=== PATIENT | male | born 1985 | race Caucasian/White ===

== ENCOUNTER 2016-08-22 21:28 | Emergency (ER) | payer OTHER ==
[~2016-08-22] VITALS: Ht 185.4 cm; Wt 103.6 kg
[~2016-08-22 21:28] MED LIST: CIPROFLOXACIN OT; FIORICET,ESG1 TABLET PO; HYDROCODON-ACE1 EAC7 PO; MOTRIN600 MG PO; SUBOXONE 4 MG-1 EACH SL; TAMIFLU75 MG PO
[2016-08-22 22:37] LABS: HEMATOCRIT 42.7 % (38.0-50.0); MCHC 35.6 G/DL (30.0-36.0); MEAN PLAT.VOLUME 10.1 uM^3 (9.0-12.4); PLATELET COUNT 220 K/uL (156-360); RBC DIS.WIDTH-CV 13.9 % (11.8-14.6); RBC DIS.WIDTH-SD 43.9 % (39-53); RED BLOOD COUNT 4.91 M/uL (4.00-5.50); WHITE BLOOD COUNT 10.6 K/uL (4.1-10.2)
[2016-08-22 22:59] LABS: CHLORIDE 105 mEq/L (99-109); POTASSIUM 3.8 mEq/L (3.7-5.4); SODIUM 137 mEq/L (136-147)
[2016-08-22 23:02] LABS: ANION GAP 8 MEQ/L (2-14); GLUCOSE 112 mg/dL (70-99)
[2016-08-22 23:03] LABS: TOTAL BILIRUBIN 0.8 mg/dL (0.0-1.0)
[2016-08-22 23:05] LABS: ALKALINE PHOSPHATASE 61 IU/L (3-129); GFR ESTIMATE (CALCULATED) > 59 mL/min/
[2016-08-22 23:06] LABS: UREA NITROGEN (BUN) 14 mg/dL (9-23)
[2016-08-22 23:29] LABS: ADD MIUA? NO; BILIRUBIN NEGATIVE; BLOOD NEGATIVE; COLOR YELLOW ((YELLOW)); GLUCOSE (STRIP) NEGATIVE; KETONES NEGATIVE; LEUKOCYTES NEGATIVE; NITRITE NEGATIVE; PROTEIN (STRIP) NEGATIVE; SPECIFIC GRAVITY 1.021 (1.000-1.030); UCUL ADDED? NO; UROBILINOGEN 0.2 MG/DL (0.2-1.0)
[2016-08-22] MEDS ORDERED: TRAMADOL HCL50 MG PO (23:32)
[2016-08-23 03:42] VITALS: BP 130/58
[2016-08-23 04:01] LABS: ERTH.SED.RATE 8 MM/HR (0-15)
[2016-08-24] MEDS ORDERED: TAMSULOSIN HCL0.4 MG PO (13:05)
[2016-08-24] MEDS ORDERED: CEFTIN250 MG PO (13:06)
[2016-08-24] MEDS ORDERED: LIPITOR20 MG PO (13:19)
== END 2016-08-23 03:43 | disposition home or self-care (01) ==
LOC: EME 21:28
PROC: 0T9B70Z Drainage of Bladder with Drainage Device, Via Natural or Artificial Opening (ICD-10-PCS; principal; 2016-08-22)
DX: R33.9 Retention of urine, unspecified (principal); F17.200 Nicotine dependence, unspecified, uncomplicated
CPT/HCPCS: 70140; 80053; 81003; 85027; 85651; 99281; 99285

== ENCOUNTER 2016-08-23 19:56 | Observation (INO) | payer OTHER ==
[~2016-08-23] VITALS: Ht 185.4 cm; Wt 102.7 kg
[~2016-08-23 19:56] MED LIST changes: +TRAMADOL HCL50 MG PO
[2016-08-23 20:23] LABS: HEMATOCRIT 42.7 % (38.0-50.0); MCH 30.9 PG (29.0-34.0); MCHC 35.1 G/DL (30.0-36.0); MCV 87.9 FL (86-99); MEAN PLAT.VOLUME 10.1 uM^3 (9.0-12.4); PLATELET COUNT 214 K/uL (156-360); RBC DIS.WIDTH-CV 13.9 % (11.8-14.6); RBC DIS.WIDTH-SD 44.3 % (39-53); RED BLOOD COUNT 4.86 M/uL (4.00-5.50); WHITE BLOOD COUNT 11.8 K/uL (4.1-10.2)
[2016-08-23 20:32] LABS: CHLORIDE 104 mEq/L (99-109); SODIUM 137 mEq/L (136-147)
[2016-08-23 20:34] LABS: GLUCOSE 117 mg/dL (70-99)
[2016-08-23 20:35] LABS: ANION GAP 9 MEQ/L (2-14)
[2016-08-23 20:37] LABS: ALKALINE PHOSPHATASE 65 IU/L (3-129)
[2016-08-23 20:38] LABS: GFR ESTIMATE (CALCULATED) > 59 mL/min/; TOTAL BILIRUBIN 0.6 mg/dL (0.0-1.0)
[2016-08-23 20:39] LABS: UREA NITROGEN (BUN) 12 mg/dL (9-23)
[2016-08-23 22:28] LABS: ERTH.SED.RATE 26 MM/HR (0-15)
[2016-08-24 01:17] LABS: ADD MIUA? NO; BILIRUBIN NEGATIVE; BLOOD NEGATIVE; COLOR YELLOW ((YELLOW)); GLUCOSE (STRIP) NEGATIVE; KETONES 5; LEUKOCYTES NEGATIVE; NITRITE NEGATIVE; PROTEIN (STRIP) NEGATIVE; SPECIFIC GRAVITY 1.025 (1.000-1.030); UCUL ADDED? NO
[2016-08-24 01:26] LABS: AMPHETAMINE NEGATIVE (500 ng/mL); BARBITURATES NEGATIVE (200 ng/mL); BENZODIAZEPINES NEGATIVE (150 ng/mL); COCAINE NEGATIVE (150 ng/mL); INTERNAL CONTROLS VALID? YES; METHADONE NEGATIVE (200 ng/mL); METHAMPHETAMINE NEGATIVE (500 ng/mL); OPIATES (MORPHINE) NEGATIVE (100 ng/mL); OXYCODONE NEGATIVE (100 ng/mL); PHENCYCLIDINE NEGATIVE (25 ng/mL); PROPOXYPHENE NEGATIVE (300 ng/mL); THC CANNABINOIDS NEGATIVE (50 ng/mL); TRICYCLIC ANTIDEPRESSANTS NEGATIVE (300 ng/mL)
[2016-08-24 06:50] VITALS: BP 106/60
[2016-08-24 09:26] VITALS: BP 105/56
[2016-08-24 12:30] VITALS: BP 115/58
[2016-08-24] MEDS ORDERED: TAMSULOSIN HCL0.4 MG PO (13:05)
[2016-08-24] MEDS ORDERED: CEFTIN250 MG PO (13:06)
[2016-08-24] MEDS ORDERED: LIPITOR20 MG PO (13:19)
== END 2016-08-24 15:01 | disposition home or self-care (01) ==
LOC: EME 19:56 → EDOF 08-24 04:46 → 5WEST 08-24 06:04
PROVIDERS: Emergency Medicine
DX: R33.9 Retention of urine, unspecified (principal); R32 Unspecified urinary incontinence; M54.9 Dorsalgia, unspecified; B18.2 Chronic viral hepatitis C; N50.82 Scrotal pain; R30.0 Dysuria; F11.20 Opioid dependence, uncomplicated; F17.200 Nicotine dependence, unspecified, uncomplicated; R76.11 Nonspecific reaction to tuberculin skin test without active tuberculosis
CPT/HCPCS: 72157; 74176; 76870; 80053; 81003; 85027; 85651; 86140; 87086; 99281; 99285; G0378; G0480; J0696; J1650; J7030; J7050